=== PATIENT | female | born 1940 | race Caucasian/White ===

== ENCOUNTER 2021-08-17 12:01 | Outpatient (CLI) | payer MEDICARE, OTHER ==
--- NOTE | 2021-08-17 17:10 | DEXA Report ---
PROCEDURE: Dexa Spine and/or Hip INDICATIONS: POST MENOPAUSAL TECHNIQUE: Dual energy x-ray absorptiometry (DXA) was performed on a [employer] System. Regions measur ed are the AP Spine, femoral neck, and if needed forearm. COMPARISON: None. FINDINGS: Bilateral hip arthroplasties. Hips not measured. Lumbar Spine: Bone Mineral Density 1.124 g/cm/cm,T score 0.5, The measured bone mineral density of the lumbar sp ine is spuriously elevated by degenerative disc disease and associated sclerotic endplate change. Left forearm: Bone Mineral Density 0.580 g/cm/cm, T score -1.6, (T score greater or equal to -1.0: NORMAL) (T score from -1.1 to -2.4: OSTEOPENIA) (T score less than or equal to -2.5 to: OSTEOPOROSIS) Impression: Osteopenia Patients with diagnosis of osteoporosis or osteopenia should have regular bone mineral density assess ment. For those eligible for Medicare, routine testing is allowed once every 2 years. Testing frequ ency can be increased for patients who have rapidly progressing disease or for those who are receivin g medical therapy to restore bone mass. Reviewed by: Huber Dennis MD on 08/17/2021 5:08 PM PST Approved by: Huber Dennis MD on 08/17/2021 5:08 PM PST Station ID: [id number]
== END 2021-08-17 12:02 | disposition home or self-care (01) ==
LOC: DI 12:01
PROVIDERS: ATTEND Nurse Practitioner Family
DX: Z78.0 Asymptomatic menopausal state (principal); Z96.643 Presence of artificial hip joint, bilateral; M85.88 Other specified disorders of bone density and structure, other site

== ENCOUNTER 2024-03-13 10:53 | Outpatient (CLI) | payer MEDICARE ==
--- NOTE | 2024-03-14 10:54 | Mammography Report ---
BILATERAL DIGITAL SCREENING MAMMOGRAM 3D/2D WITH EXAGGERATED CC: 03/13/2024 CLINICAL: Routine screening. Comparison is made to exams dated: 02/26/2023 mammogram, 01/31/2022 mammogram, 11/16/2020 mammogram, stereotactic biopsy, 11/09/2020 mammogram, and 10/15/2018 mammogram - [facility]. Both breasts are heterogeneously dense, which may obscure small masses (category c / 51-75% glandular tissue). There is a possible new oval asymmetry in the left breast middle depth central to the nipple seen on the craniocaudal view only. No other significant masses, calcifications, or other findings are seen in either breast. IMPRESSION: INCOMPLETE: NEEDS ADDITIONAL IMAGING EVALUATION The possible new oval asymmetry in the left breast is indeterminate. Additional views with possible ultrasound are recommended. Based on the Tyrer Cuzick model (a risk assessment model) the patient's lifetime risk is 1.7% and her 10 year risk is 0.0%. According to the ACR, ACS, and NCCN guidelines, an annual breast MRI exam nerissa g with mammogram is recommended if the patient's lifetime risk is 20% or greater. This exam was interpreted at Station ID: [id number]. NOTE: For mammograms, a report in lay terms will be sent to the patient. Approximately 15% of breast malignancies will not be visualized mammographically. In the management of a palpable breast mass, a negative mammogram must not discourage biopsy of a clinically suspicious lesion. Electronically Signed By: Roland harris/[email or web address]:03/13/2024 18:36:22 ACR BI-RADS Category 0: Incomplete 3340F PARENCHYMAL PATTERN: (D) - The breast(s) demonstrate(s) heterogeneously dense fibroglandular parenchy ma. BI-RADS CATEGORY: (0) - 0 Mammo and [place] [id number] Immediate follow-up LATERALITY: (L)
== END 2024-03-13 10:54 | disposition home or self-care (01) ==
LOC: DI 10:53
DX: Z12.31 Encounter for screening mammogram for malignant neoplasm of breast (principal); R92.8 Other abnormal and inconclusive findings on diagnostic imaging of breast; R92.333 Mammographic heterogeneous density, bilateral breasts

== ENCOUNTER 2024-04-24 07:21 | Outpatient (CLI) | payer MEDICARE ==
--- NOTE | 2024-04-24 10:00 | Mammography Report ---
UNILATERAL LEFT DIGITAL DIAGNOSTIC MAMMOGRAM 3D/2D WITH SPOT COMPRESSION: 04/24/2024 CLINICAL: Patient returns today to evaluate an asymmetry in the left breast. Comparison is made to exams dated: 03/13/2024 mammogram - [facility], 02/26/2023 mamm ogram, 01/31/2022 mammogram, 11/16/2020 mammogram, 11/16/2020 stereotactic biopsy, and 11/09/2020 mammogra [facility]. The breasts are heterogeneously dense, which may obscure small masses (category c / 51-75% glandular tissue). The possible new oval asymmetry in the left breast middle depth central to the nipple seen on the crab backer niocaudal view only is not confirmed with additional views. No other significant masses or calcifications are seen in the breast. IMPRESSION: INCOMPLETE: NEED ADDITIONAL IMAGING EVALUATION The possible new oval asymmetry in the left breast most likely is fibroglandular tissue and remains i ndeterminate. An ultrasound is recommended. This was performed immediately following this exam. Based on the Tyrer Cuzick model (a risk assessment model) the patient's lifetime risk is 1.7% and her 10 year risk is 0.0%. According to the ACR, ACS, and NCCN guidelines, an annual breast MRI exam nerissa g with mammogram is recommended if the patient's lifetime risk is 20% or greater. This exam was interpreted at Station ID: [id number]. NOTE: For mammograms, a report in lay terms will be sent to the patient. Approximately 15% of breast malignancies will not be visualized mammographically. In the management of a palpable breast mass, a negative mammogram must not discourage biopsy of a clinically suspicious lesion. Electronically Signed By: Ashley prasad/:04/24/2024 08:38:17 ACR BI-RADS Category 0: Incomplete: Need Additional Imaging Evaluation 3340F PARENCHYMAL PATTERN: (D) - The breast(s) demonstrate(s) heterogeneously dense fibroglandular parenchy ma. BI-RADS CATEGORY: (0) - 0 Ultrasound [id number] Immediate follow-up LATERALITY: (B)
--- NOTE | 2024-04-24 10:00 | Ultrasound Report ---
LIMITED ULTRASOUND OF LEFT BREAST: 04/24/2024 CLINICAL: Patient returns today to evaluate a focal asymmetry in the left breast. Comparison is made to exams dated: 04/24/2024 mammogram, 03/13/2024 mammogram - [facility], 02/26/2023 mammogram, 01/31/2022 mammogram, 11/16/2020 mammogram, and 11/16/2020 stereotactic biop [facility]. Real-time ultrasound of the left breast 12 o'clock region was performed. Torres scale images of the r eal-time examination were reviewed. No significant abnormalities were seen sonographically in the left breast. Specifically, no finding to correspond to the patient's probably resolved screening mammographic abnormality seen on CC view o nly. IMPRESSION: PROBABLY BENIGN No sonographic correlate to the mammographic finding. This likely is overlapping fibroglandular tissu e. A follow-up left mammogram and an ultrasound in 6 months is recommended to demonstrate stability. Findings and recommendations were conveyed to the patient at time of exam. This exam was interpreted at Station ID: [id number]. Electronically Signed By: Ashley prasad/:04/24/2024 08:39:48 ACR BI-RADS Category 3: Probably Benign 3343F BI-RADS CATEGORY: (3) - 3 Mammo and [place] [id number] 6 month follow-up LATERALITY: (L)
== END 2024-04-24 07:22 | disposition home or self-care (01) ==
LOC: DI 07:21
PROVIDERS: ATTEND Nurse Practitioner Family
DX: R92.8 Other abnormal and inconclusive findings on diagnostic imaging of breast (principal); R92.332 Mammographic heterogeneous density, left breast